=== PATIENT | female | born 1970 | race Caucasian/White ===

== ENCOUNTER 2021-01-31 13:20 | Emergency (ER) | payer OTHER, SELFPAY ==
[2021-01-31 13:44] VITALS: BP 188/103; PULSE 77; RESP 18; TEMP 36.4; O2SAT 100
[2021-01-31 14:15] LABS: Add Urine Microscopic? YES; Appearance Urine Cloudy (Clear); Bilirubin Urine Negative (Negative); Blood Urine 3+ (Negative); Color Urine Yellow (Yellow); Glucose Urine UA Negative (Negative); Ketones Urine Negative (Negative); Leukocyte Esterase Ur Negative LEU/UL (Negative); Mucus Urine Few /lpf; Nitrate Urine Negative (Negative); Protein Urine 1+ mg/dL (Negative); RBC Urine >75 /hpf (0-2); Specific Grav Ur 1.019 (1.001-1.035); Squamous Epithelial Cell Urine Many /hpf (Few); Urobilinogen Urine Negative mg/dL (<2.0)
--- NOTE | 2021-01-31 14:51 | PC.NURSE ---
patient walked out of ED without difficulty.
== END 2021-01-31 14:52 | disposition left against medical advice (07) ==
LOC: ANHED 15:08
PROVIDERS: Physician Assistant; Emergency Provider Emergency Medicine
DX: M25.552 Pain in left hip (principal); M25.551 Pain in right hip
CPT/HCPCS: 81001; 81025; 99199